=== PATIENT | female | born 1955 | race Caucasian/White ===

== ENCOUNTER 2017-04-30 10:05 | Outpatient (CLI) | payer BC | END 2017-04-30 19:48 | disposition home or self-care (01) | LOC: SMA 10:05 | DX: Z12.31 Encounter for screening mammogram for malignant neoplasm of breast (principal); R92.1 Mammographic calcification found on diagnostic imaging of breast | CPT/HCPCS: 77067 ==

== ENCOUNTER 2018-06-15 10:20 | Outpatient (CLI) | payer BC | END 2018-06-15 21:23 | disposition home or self-care (01) | LOC: SMA 10:20 | DX: Z12.31 Encounter for screening mammogram for malignant neoplasm of breast (principal) | CPT/HCPCS: 77067 ==

== ENCOUNTER 2019-09-01 14:13 | Outpatient (CLI) | payer BC | END 2019-09-01 20:14 | disposition home or self-care (01) | LOC: SMA 14:13 | DX: Z12.31 Encounter for screening mammogram for malignant neoplasm of breast (principal) | CPT/HCPCS: 77067 ==

== ENCOUNTER 2020-10-18 09:25 | Outpatient (CLI) | payer OTHER | END 2020-10-18 20:37 | disposition home or self-care (01) | LOC: SMA 09:25 | DX: Z12.31 Encounter for screening mammogram for malignant neoplasm of breast (principal) | CPT/HCPCS: 77067 ==